=== PATIENT | female | born 1945 ===

== ENCOUNTER 2018-04-19 09:24 | Outpatient (CLI) | payer OTHER ==
[~2018-04-19 09:24] MED LIST: HYZAAR 100-251 UDTAB
== END 2018-04-19 09:25 | disposition home or self-care (01) ==
LOC: SONOGRAMA 09:24
DX: E04.1 Nontoxic single thyroid nodule (principal)

== ENCOUNTER 2018-11-15 09:06 | Outpatient (CLI) | payer OTHER | END 2018-11-15 09:16 | disposition home or self-care (01) | LOC: SONOGRAMA 09:06 | DX: E04.1 Nontoxic single thyroid nodule (principal) ==